=== PATIENT | female | born 1980 | race Caucasian/White ===

== ENCOUNTER 2018-05-25 12:03 | Emergency (ER) | payer MEDICAID ==
[2018-05-25] MEDS: DIAZEPAM 5 MG TAB PO (14:20)
[2018-05-25] MEDS: KETOROLAC 30 MG INJ IM (14:21)
== END 2018-05-25 15:41 | disposition home or self-care (01) ==
LOC: FTE 12:03
DX: M54.5 Low back pain (principal)
CPT/HCPCS: 72100; 81025; 96372; 99284-25